=== PATIENT | female | born 1995 | race Caucasian/White ===

== ENCOUNTER 2021-05-18 09:18 | Emergency (ER) | payer OTHER ==
[~2021-05-18 09:18] MED LIST: IBUPROFEN800 MG PO; MACROBID 100 M100 M1 PO; TORADOL 10 MG T10 MG PO; ZOFRAN ODT 4 MG4 MG SL
== END 2021-05-18 11:31 | disposition home or self-care (01) ==
LOC: ER1 09:18
DX: U07.1 COVID-19 (principal)
CPT/HCPCS: 71045; 99283; U0003